=== PATIENT | female | born 2000 ===

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

== ENCOUNTER 2019-08-19 08:03 | Outpatient (CLI) | payer OTHER | END 2019-08-19 08:04 | disposition home or self-care (01) | LOC: SONOGRAMA 08:03 | DX: R22.2 Localized swelling, mass and lump, trunk (principal) ==

== ENCOUNTER 2021-02-15 11:10 | Outpatient (CLI) | payer OTHER | END 2021-02-15 11:13 | disposition home or self-care (01) | LOC: SONOGRAMA 11:10 | PROVIDERS: ATTEND Pathology Anatomic Pathology & Clinical Pathology | DX: E04.1 Nontoxic single thyroid nodule (principal) ==